=== PATIENT | female | born 1975 | race Caucasian/White ===

== ENCOUNTER 2016-11-15 18:05 | Emergency (ER) | payer MEDICAID ==
[~2016-11-15] VITALS: Ht 160 cm; Wt 136.0 kg
[2016-11-15 18:48] VITALS: Ht 160 cm; Wt 136.0 kg
[2016-11-15] MEDS ORDERED: BEN25 PO (19:11)
--- NOTE | 2016-11-15 19:34 | ERD ---
ER Documentation Chief Complaint Date/Time DATE: 11/15/16 TIME: 19:33 Chief Complaint Rash for 1 week on and off HPI 31-year-old female presents here in emergency department for complaints of on and off rash and itching for 1 week. At this time, patient does not have any rash or itching. Patient does not have any symptoms at this time. Patient does not have any lip swelling, tongue swelling or stridor. Patient's family members have the same symptoms, was to be checked today with everybody else. Patient did not take any medications to help with symptoms. ROS All systems reviewed and are negative except as per history of present illness. Medications Home Meds Active Scripts Diphenhydramine Hcl* (Benadryl*) 25 Mg Cap, 25 MG PO Q6 Y for ITCHING/RASH, #30 TAB Prov:MANDA DARBY NP 11/15/16 Allergies Allergies: Coded Allergies: No Known Allergy (Unverified , 11/15/16) PMhx/Soc Medical and Surgical Hx: pt denies Medical Hx, pt denies Surgical Hx FmHx Family History: No coronary disease, No diabetes, No other Physical Exam Vitals Vital Signs Date Time Temp Pulse Resp B/P Pulse Ox O2 Delivery O2 Flow Rate FiO2 11/15/16 18:48 98.6 90 20 121/57 100 Physical Exam GENERAL: The patient is well developed and appropriate for usual state of health, in no apparent distress. CHEST: Clear to auscultation bilaterally. There are no rales, wheezes or rhonchi. HEART: Regular rate and rhythm. No murmurs, clicks, rubs or gallops. No S3 or S4. ABDOMEN: Soft, nontender and nondistended. Good bowel sounds. No rebound or guarding. No gross peritonitis. No gross organomegaly or masses. No Wilhelm sign or McBurney point tenderness. BACK: No midline or flank tenderness. EXTREMITIES: Equal pulses bilaterally. There is no peripheral clubbing, cyanosis or edema. No focal swelling or erythema. Full range of motion. Grossly neurovascularly intact. NEURO: Alert and oriented. Cranial nerves 2-12 intact. Motor strength in all 4 extremities with 5/5 strength. Sensation grossly intact. Normal speech and gait. SKIN: There is no apparent rash or petechia. The skin is warm and dry. HEMATOLOGIC AND LYMPHATIC: There is no evidence of excessive bruising or lymphedema. No gross cervical, axillary, or inguinal lymphadenopathy. Procedures/MDM Medical decision-making: There is no visualized rash at this time, patient's itching and rash is nonspecific, possible bug bite, possible allergic, possibly can be viral. Nonspecific at this time. No symptoms of anaphylactic shock, no visualized. No symptoms of angioedema, anaphylactic shock. No coagulopathies noted. Patient was given for Benadryl in case of of itching, patient is advised to follow with primary care doctor 2-3 days for reevaluation symptoms. Patient was advised to return to emergency department for any worsening symptoms. Departure Diagnosis: Primary Impression: Rash Condition: Stable Patient Instructions: Self-Care for Skin Rashes MANDA DARBY NP Nov 15, 2016 19:34
== END 2016-11-15 19:20 | disposition home or self-care (01) ==
LOC: E/R 18:05
DX: R21 Rash and other nonspecific skin eruption (principal)
CPT/HCPCS: 99283

== ENCOUNTER 2017-07-25 15:21 | Emergency (ER) | END 2017-07-25 18:41 | disposition home or self-care (01) ==

== ENCOUNTER 2017-08-04 16:36 | Emergency (ER) | payer MEDICAID ==
[~2017-08-04] VITALS: Ht 165.1 cm; Wt 126.0 kg
[~2017-08-04 16:36] MED LIST: BEN25 PO; IBUP400T22 PO
[2017-08-04 16:41] VITALS: Ht 165.1 cm; Wt 126.0 kg
[2017-08-04] MEDS ORDERED: traMADol 50 MG TAB PO ONE (18:00)
--- NOTE | 2017-08-04 18:52 | RADRPT ---
PROCEDURE: Left ankle series CLINICAL INDICATION: Left ankle pain. Trauma TECHNIQUE: AP, oblique, and lateral views of the left ankle were obtained. COMPARISON: 07/25/2017 FINDINGS: No acute fracture or dislocations are seen. The osseous structures are well mineralized. The ankle mortise is intact. The articular surfaces are normal. No evidence of a joint effusion is seen. M oderate lateral malleolar soft tissue swelling is once again seen. The remaining soft tissue structu res are intact. A plantar calcaneal spur is once again seen. IMPRESSION: Moderate lateral malleolar soft tissue swelling again seen. RPTAT: HPNM Physician Rolando Date Time Electronically viewed and signed by Physician Rolando on 08/04/2017 18:52 /
--- NOTE | 2017-08-04 18:54 | RADRPT ---
PROCEDURE: XR Foot. CLINICAL INDICATION: Right foot pain. Trauma TECHNIQUE: AP, lateral and oblique views of the right foot was obtained. The images were reviewed on a PACS workstation. COMPARISON: 07/25/2017 FINDINGS: The bones of the foot appear intact, with no evidence of fracture, dislocation, or subluxation. The joint spaces are preserved. Bone mineralization is normal. The soft tissue structures are intact. A plantar calcaneal spur is again seen. IMPRESSION: No evidence of an acute abnormality. RPTAT: HPNM Physician Rolando Date Time Electronically viewed and signed by Physician Rolando on 08/04/2017 18:53 /
--- NOTE | 2017-08-04 19:17 | ERD ---
ER Documentation Chief Complaint Chief Complaint b/l foot pain x 2 weeks HPI 42-year-old female complains of pain in her left ankle and right foot after tripping and falling and twisting both her lower extremities 2 weeks ago. She had normal x-rays at that time. She is taking ibuprofen without relief of her pain and difficulty walking. She denies any fevers, restricted range of motion or weakness. ROS All systems reviewed and are negative except as per history of present illness. Medications Home Meds Active Scripts Ibuprofen* (Ibuprofen*) 400 Mg Tablet, 400 MG PO Q6H Y for PAIN, #30 TAB Prov:BRYSON KENNEDY PA-C 07/25/17 Diphenhydramine Hcl* (Benadryl*) 25 Mg Cap, 25 MG PO Q6 Y for ITCHING/RASH, #30 TAB Prov:MANDA DARBY NP 11/15/16 Allergies Allergies: Coded Allergies: No Known Allergy (Unverified , 08/04/17) PMhx/Soc Medical and Surgical Hx: pt denies Medical Hx, pt denies Surgical Hx Hx Alcohol Use: No Hx Substance Use: No Hx Tobacco Use: No Smoking Status: Never smoker Physical Exam Vitals Vital Signs Date Time Temp Pulse Resp B/P Pulse Ox O2 Delivery O2 Flow Rate FiO2 08/04/17 16:41 98.1 82 18 123/70 99 Physical Exam Const: [] Alert, not ill-appearing. Head: Atraumatic Eyes: Normal Conjunctiva ENT: Normal External Ears, Nose and Mouth. Neck: Full range of motion..~ No meningismus. Resp: Clear to auscultation bilaterally Cardio: Regular rate and rhythm, no murmurs Abd: Soft, non tender, non distended. Normal bowel sounds Skin: No petechiae or rashes Back: No midline or flank tenderness Ext: No cyanosis, or edema or tenderness in the left lateral joint with some swelling. No deformities, no bony tenderness. No erythema or warmth. Tenderness in the right calcaneus without significant swelling, erythema no joint tenderness, restricted range of motion weakness. Neur: Awake and alert Psych: Normal Mood and Affect Results 24 hrs Current Medications Medications (Trade) Dose Ordered Sig/Samantha Route PRN Reason Start Time Stop Time Status Last Admin Dose Admin Tramadol HCl (Ultram) 50 mg ONCE ONCE PO 08/04/17 18:00 12/16/17 18:01 DC 08/04/17 17:48 Procedures/MDM X-ray right foot 3V Interpreted by me: Bones: [No fracture] Joints: [No dislocation] Foreign body: [None] impression-normal right foot x-ray X-ray left ankle 3V Interpreted by me: Bones: [No fracture] Joints: No dislocation impression-normal left ankle x-ray Patient was placed in a left lower extremity walker boot was neurovascular intact to the boot. She is also placed in a right ankle and foot Butch bandage. Patient is a optimization consultant crutches with crutch training. Patient has signs and symptoms of right foot contusion left ankle sprain with persistent pain. Patient is morbidly obese and attempting to walk so it may be inhibiting healing. She is advised to ice and elevate at home, limit ambulation, follow- up with primary doctor and orthopedist for further motion treatment otherwise return for fevers, new worsening symptoms. There is no evidence of fracture, dislocation, deficits, ischemia, infection. Departure Diagnosis: Primary Impression: Foot pain Laterality: right Qualified Code: M79.671 - Right foot pain Additional Impression: Left ankle sprain Encounter type: initial encounter Involved ligament of ankle: unspecified ligament Qualified Code: S93.402A - Sprain of left ankle, unspecified ligament , initial encounter Condition: Stable SHLOMO SINGH MD Aug 04, 2017 19:17
[2017-08-04] MEDS ORDERED: TRAM50TA2 PO (19:18)
[2017-08-04 20:10] VITALS: BP 124/60; PULSE 68; RESP 20; TEMP 98.2
== END 2017-08-04 19:59 | disposition home or self-care (01) ==
LOC: FTE 16:36
DX: S93.402A Sprain of unspecified ligament of left ankle, initial encounter (principal); S99.921A Unspecified injury of right foot, initial encounter; W01.0XXA Fall on same level from slipping, tripping and stumbling without subsequent striking against object, initial encounter; Y92.9 Unspecified place or not applicable
CPT/HCPCS: 73610; 73630; Z7502; Z7610

== ENCOUNTER 2017-08-27 15:31 | Emergency (ER) | END 2017-08-27 18:07 | disposition home or self-care (01) ==

== ENCOUNTER 2017-10-19 11:56 | Emergency (ER) | END 2017-10-19 12:26 | disposition home or self-care (01) ==

== ENCOUNTER 2017-10-24 13:08 | Emergency (ER) | END 2017-10-24 19:02 | disposition home or self-care (01) ==

== ENCOUNTER 2018-05-26 11:36 | Emergency (ER) | END 2018-05-26 14:57 | disposition home or self-care (01) ==

== ENCOUNTER 2018-12-10 12:04 | Emergency (ER) | payer MEDICAID ==
[~2018-12-10] VITALS: Ht 165.1 cm; Wt 118.0 kg
[~2018-12-10 12:04] MED LIST changes: +ACET325T33 PO; +AZIT250T PO; +BACL10TA PO; +CIPR-193 PO; +GUAI-173 PO; +HYDR-4011 PO; +IBUP-1541 PO; +IBUP-1542 PO; -IBUP400T22 PO; +IBUP800T48 PO; +MED4DP PO; +NAPR-985 PO; +NORE1TAB12 PO; +PHEN177S6 MM; +TRAM50TA2 PO
[2018-12-10 12:10] VITALS: Ht 165.1 cm; Wt 118.0 kg
[2018-12-10] MEDS ORDERED: KETOROLAC 30 MG INJ IV STA (13:15)
[2018-12-10] MEDS ORDERED: OMEP20CA16 PO (13:48)
[2018-12-10] MEDS ORDERED: NITR-58 PO (14:08)
[2018-12-10] MEDS ORDERED: IBUP-1542 PO (14:10)
--- NOTE | 2018-12-10 14:11 | ERD ---
ER Documentation Chief Complaint Chief Complaint pt is bib family with c/o chest pain starting 1 hr ago HPI Patient is a 43-year-old female with no medical problems who presents with chest pain. The patient says that she has chest pain and back pain. She has left- sided arm pain. Symptoms started yesterday. She said that they come and going about 1 hour ago the pain came back. She has had no treatment as of yet. Patient had shortness of breath and dizziness associated with it. She felt like she was possibly because she has not had her period in the past 2 weeks. She does not currently have a primary doctor. Upon review of old medical records this is the patient's eighth visit to the ER since 2017. ROS All systems reviewed and are negative except as per history of present illness. Medications Home Meds Active Scripts Ibuprofen* (Motrin*) 600 Mg Tab, 600 MG PO Q6H PRN for PAIN AND OR ELEVATED TEMP, #30 TAB Prov:RIYA GOOD MD 12/10/18 Nitrofurantoin Monohyd Macrocr* (Macrobid*) 100 Mg Capsr, 100 MG PO BID for 7 Days, CAP Prov:RIYA GOOD MD 12/10/18 Reported Medications Omeprazole* (Omeprazole*) 20 Mg Capsule.dr, 20 MG PO DAILY, #30 CAP 12/10/18 Discontinued Scripts Noreth A-Et Estra/Fe Fumarate (LO LOESTRIN FE 1-10 TABLET) 1 Each Tablet, 1 EACH PO DAILY, #28 TAB Prov:JUNE ANGELES PA-C 05/26/18 Ibuprofen* (Motrin*) 800 Mg Tab, 800 MG PO Q6, #30 TAB Prov:JUNE ANGELES PA-C 05/26/18 Ciprofloxacin Hcl* (Ciprofloxacin Hcl*) 250 Mg Tablet, 250 MG PO BID for 5 Days, #10 TAB Prov:BRIELLE COLON MD 10/24/17 Baclofen* (Baclofen*) 10 Mg Tablet, 10 MG PO TID, #20 TAB Prov:BRIELLE COLON MD 10/24/17 Hydrocodone/Acetaminophen ([place] 5-325 Tablet) 1 Each Tablet, 1 TAB PO Q6H PRN for PAIN, #20 TAB Prov:BRIELLE COLON MD 10/24/17 Methylprednisolone* (Medrol* DOSE PACK) 4 Mg/Dose-Pack Tab.ds.pk, 4 MG PO . DIRECTED for 6 Days, PACKET Prov:GUIDOMIGUELITO Bo 10/19/17 Guaifenesin* (Tussin*) 100 Mg/5 Ml Syrup, 200 MG PO Q6 PRN for COUGH for 3 Days, ML Prov:GUIDOMIGUELITO Bo 10/19/17 Phenol* (Throat [place]*) 177 Ml [place], 2 SPRAY MM Q2H PRN for SORE THROAT for 3 Days, SPRAY Prov:GUIDOMIGUELITO Bo 10/19/17 Azithromycin* (Zithromax*) 250 Mg Tablet, 250 MG PO .ZPACK DIRECTED, #6 TAB TAKE 500 MG (2 TABS) THE FIRST DAY THEN 250 MG (1 TAB) DAYS 2-5 Prov:GUIDO,MIGUELITO Bo 10/19/17 Ibuprofen* (Motrin*) 600 Mg Tab, 600 MG PO Q6, #30 TAB Prov:MIGUELITO LORA 10/19/17 Naproxen* (Naprosyn*) 500 Mg Tablet, 500 MG PO BID PRN for PAIN AND/OR INFLAMMATION, #20 TAB Prov:ASTON HEADLEYC 08/27/17 Acetaminophen* (Tylenol*) 325 Mg Tablet, 2 TAB PO Q6 PRN for PAIN AND OR ELEVAT ED TEMP, #20 TAB Prov:ASTON HEADLEYC 08/27/17 Tramadol HCl (Tramadol HCl) 50 Mg Tablet, 50 MG PO Q4 PRN for PAIN, #20 TAB Prov:SHLOMO SINGH MD 08/04/17 Ibuprofen* (Ibuprofen*) 400 Mg Tablet, 400 MG PO Q6H PRN for PAIN, #30 TAB Prov:BRYSON KENNEDY-C 07/25/17 Diphenhydramine Hcl* (Benadryl*) 25 Mg Cap, 25 MG PO Q6 PRN for ITCHING/RASH, #30 TAB Prov:MANDA DARBY NP 11/15/16 Allergies Allergies: Coded Allergies: No Known Allergy (Unverified , 12/10/18) PMhx/Soc Medical and Surgical Hx: pt denies Medical Hx History of Surgery: Yes (GLADDER ) Anesthesia Reaction: No Hx Neurological Disorder: No Hx Respiratory Disorders: No Hx Cardiac Disorders: No Hx Psychiatric Problems: No Hx Miscellaneous Medical Probl: No Hx Alcohol Use: No Hx Substance Use: No Hx Tobacco Use: No Smoking Status: Never smoker FmHx Family History: No coronary disease Physical Exam Vitals Vital Signs Date Temp Pulse Resp B/P (MAP) Pulse Ox O2 O2 Flow FiO2 Time Delivery Rate 12/10/18 98.2 67 15 118/49 100 Room Air 14:46 (72) 12/10/18 86 16 117/65 98 Room Air 12:55 (82) 12/10/18 98.3 86 16 132/50 99 12:10 (77) Physical Exam Const: No acute distress Head: Atraumatic Eyes: Normal Conjunctiva ENT: Normal External Ears, Nose and Mouth. Neck: Full range of motion. No meningismus. Resp: Clear to auscultation bilaterally Cardio: Regular rate and rhythm, no murmurs, chest wall pain with palpation Abd: Soft, non tender, non distended. Normal bowel sounds Skin: No petechiae or rashes Back: No midline or flank tenderness Ext: No cyanosis, or edema Neur: Awake and alert Psych: Normal Mood and Affect Results 24 hrs Laboratory Tests Test 12/10/18 13:13 12/10/18 13:34 POC Beta HCG, Qualitative NEGATIVE Bedside Urine pH (LAB) 6.5 Bedside Urine Protein (LAB) 2+ Bedside Urine Glucose (UA) Negative Bedside Urine Ketones (LAB) Negative Bedside Urine Blood 2+ Bedside Urine Nitrite (LAB) Positive Bedside Urine Leukocyte Esterase (L Negative Current Medications Medications Dose Sig/Samantha Start Time Status Last (Trade) Ordered Route PRN Stop Time Admin Dose Reason Admin Ketorolac 30 mg ONCE STAT 12/10/18 DC 12/10/18 Tromethamine IV 13:15 13:30 (Toradol) 12/10/18 13:17 Ibuprofen 600 mg ONCE ONCE 12/10/18 DC 12/10/18 (Motrin) PO 14:30 14:35 12/10/18 14:31 Procedures/MDM EKG read by me: Rate/Rhythm: Regular rate and rhythm at a rate of 90 Intervals: Normal Impression: No evidence of ischemia or arrhythmia Chest x-ray negative per radiology. Urine dip shows mild infection. Patient is a 43-year-old female who presents with chest pain. EKG and chest x- ray are negative. At this point I doubt acute coronary syndrome, pneumonia, pneumothorax, pulmonary embolism, or aortic dissection. test is negative. I doubt or ectopic . Urine dip does show mild infection and the patient will be treated with Macrobid. The patient was given Toradol for pain in the emergency department and will be given a prescription for ibuprofen. The patient can return for any worsening symptoms. She should follow-up with the local clinics within 24-48 hours for reevaluation as she does not currently have a primary doctor. Departure Diagnosis: Primary Impression: Cystitis Additional Impression: Chest pain Chest pain type: unspecified Qualified Codes: R07.9 - Chest pain, unspecified Condition: Fair Patient Instructions: Cystitis, Chest Pain, Uncertain Cause [facility]errals: [facility] Mike se krause hecho un examen mdico de control que le indica que no est en nader condicin que requiera tratamiento urgente en el Departamento de Emergencia. Un estudio ms profundo y el tratamiento de dunham condicin pueden esperar sin ningn riesgo hasta que usted sea atendida/o en el consultorio de dunham mdico o nader c lnica. Es responsabilidad suya arreglar nader tico para el seguimiento del manjeet. MANEJO DE CONDICIONES NO URGENTES EN EL FUTURO 1) Si usted tiene un mdico de atencin primaria: Usted debera llamar a dunham mdico de atencin primaria antes de venir al depa rtamento de emergencia. Despus de las horas de consultorio, dunham doctor o dunham asociado/a est disponible por telfono. El mdico o enfermero de naa en el servicio telefnico puede asesorarle por roderick medio para atender el problema, o manjeet contrario se puede programar nader tico. 2) Si usted no tiene un mdico de atencin primaria: Llame al mdico o clnica de referencia que aparece abajo adair las horas de consultorio para hacer nader tico para que le vean. CLINICAS: [facility] [id number] [facility] [phone] [facility] [phone] [place] [phone] [place] [phone] [facility] [phone] [address] Additional Instructions: Llame al doctor MAANA y caty nader TICO PARA DENTRO DE 1-2 DOAN.Dgale a la secretaria que nosotros le instruimos hacer esta tico.Avise o llame si dunham condicin se empeora antes de la tico. Regresa aqui si peor o no mejor. RIYA GOOD MD Dec 10, 2018 14:11
[2018-12-10] MEDS ORDERED: IBUPROFEN 600 MG TAB PO ONE (14:30)
[2018-12-10 14:46] VITALS: BP 118/49; PULSE 67; RESP 15
== END 2018-12-10 14:46 | disposition home or self-care (01) ==
LOC: E/R 12:04
DX: N30.90 Cystitis, unspecified without hematuria (principal)
CPT/HCPCS: 71045; 81003; 81025; 93005; 96372; J1885; Z7502; Z7610